=== PATIENT | female | born 1995 | race Caucasian/White ===

== ENCOUNTER 2016-11-07 16:11 | Emergency (ER) | payer OTHER ==
[~2016-11-07] VITALS: Ht 170.2 cm; Wt 75.0 kg
[~2016-11-07 16:11] MED LIST: DOCU-41 PO; HYDR-4003 PO; HYDROcodone-APAP 5-325 PO; IBUP800T28 PO; TUCPAD TOPICAL
[2016-11-07 16:14] VITALS: BP 130/89; PULSE 72; RESP 15; O2SAT 100
--- NOTE | 2016-11-07 17:50 | ED.REPORT ---
HPI-General Illness Date of Service Nov 07, 2016 ED Provider: Darrius Butler MD Patient is a healthy 21 year old female who presents to the ED complaining of left leg numbness that began 4 days ago. Patient reports that the numbness radiates up to her back. She describes the pain in her back as a stinging sensation. Patient is currently expressing concern because the sensation has persisted. She denies any difficulty ambulating, bowel/bladder incontinence, significant changes in weight head injury or LOC. He denies any chance of due to Mirena. Patient denies any pertinent medical history or current medications. Nursing Notes Stated Complaint: LEFT SIDE NUMB Chief Complaint: Extremity Trauma Nursing Notes Reviewed: Yes Allergies: Coded Allergies: No Known Allergies (Verified Allergy, Unknown, 11/07/16) Scheduled Docusate Sodium (Colace) 100 Mg Capsule 100 MG PO BID Prednisone (PredniSONE) 20 Mg Tablet 20 MG PO DAILY Scheduled PRN ([HYDROcodone-APAP 5-325]) 1 TABLET TABLET 1-2 TABLET PO Q4H PRN PRN For Pain Cyclobenzaprine (Cyclobenzaprine) 5 Mg Tablet 5 MG PO HS PRN PRN Spasm Hydrocodone-Acetaminophen 5-325 mg (Hydrocodone-Acetaminophen 5-325 mg) 1 Each Tablet 1 TABLET PO Q4H PRN PRN For Pain Ibuprofen (Ibuprofen) 800 Mg Tablet 800 MG PO Q6H PRN PRN For Pain Witch Aixa/Glycerin (A.e.r Pads) 12 Pad/Pkg Pad 1 PAD TOPICAL PRN PRN PRN for perineal pain General Time Seen by MD: 17:47 Chief Complaint Other (Numbness ) Hx Obtained From: Patient Arrived By: Walk-in Sudden in Onset?: No Onset Occurred: 4 days ago Symptom Duration: 4 days Location: : Back: Leg left Quality: Same as prior (stinging) Radiation: : Back Severity: Current: Moderate Severity: Maximum: Moderate Associated with: Reports: Numb extremities, Denies: Headache, Loss of consciousness, Weak extremity, Weakness Pertinent Negative: Pt denies other symptoms Recent Healthcare: No recent doctor visit, No recent hospitalization Past Medical History Past Medical History Healthy Past Surgical History None reported. Smoking History Unknown if Ever Smoker Social History Other Social History: Good social support, Local resident Ambulatory Status Independent Review of Systems Full Review of Systems Female: Denies: Incontinence Musculoskeletal: Reports: Back pain Neurologic: Reports: Numbness (left leg ), Denies: Change LOC, Focal weakness, Headache, Weakness Complete sys rev & neg: except as marked. Physical Exam Vital Signs Vital Signs Date Time Temp Pulse Resp B/P Pulse Ox O2 Delivery O2 Flow Rate FiO2 11/07/16 19:09 36.8 72 16 128/88 100 Room Air 11/07/16 16:14 36.8 72 15 130/89 100 Room Air Initial VS: Reviewed Neck: Supple, Non-tender, Full range of motion Skin: Warm, Dry, No cyanosis Psychiatric: Mood/affect normal, Behavior normal, Normal thought content General/Constitutional: Awake, Alert, No acute distress, Well appearing, Well developed Head / Eyes: Atraumatic, Normocephalic, PERRL Respiratory / Chest: Atraumatic, Breath sounds NL, Breath sounds = bilat, No respiratory distress Cardiovascular: Heart rate NL, Regular rhythm, Heart sounds NL, No gallop, No murmurs, No rubs Back: Atraumatic, No midline vertebral tend, No CVA tenderness Flank / Spine / Paraspinal: Positive: Lumbar paraspinal tend... Lower Extremity / Pelvis / MS: Atraumatic, Inspection NL, Neurologic intact, Vascular intact NEURO: Normal patellar reflex 5/5 strength in the bilateral extremities. Subjective sensory change but able to feel palpation Interpretation & Diagnostics Lab Results Interpretation Test 11/07/16 18:52 Hold Urine Received (Received) Point of Care Testing: Preg test neg - urine Re-Eval/Medical Decision Med Decision/Clinical Course Patient is a healthy 21 year old female who presents to the ED complaining of left leg numbness that began 4 days ago. Patient reports that the numbness radiates up to her back. She describes the pain in her back as a stinging sensation. Patient is currently expressing concern because the sensation has persisted. She denies any difficulty ambulating, bowel/bladder incontinence, significant changes in weight head injury or LOC. He denies any chance of due to Mirena. Patient denies any pertinent medical history or current medications. Here in the emergency department the patient is afebrile stable vital signs and examination as above. Urine test is negative. Patient has full strength in the affected extremity and sensation is intact both subjectively "feels different". 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 Discussed management options with the patient and given that this is not going on for 4 days she would like "some medication to help her out". I feel that she may benefit from a short course of oral prednisone for anti-inflammatory effect. I will prescribe her 5 days of prednisone 20 mg. She requested medication to help with the pain and was given a limited supply of Flexeril. She is advised not to drive or drink alcohol while taking this medication. At this time, I see no indication of central cord pathology or cauda equina syndrome. I do not feel that any imaging studies are indicated. Prior to discharge follow-up and return precautions were reviewed in detail with the patient who verbalized understanding and agreement with the plan. The patient was discharged in stable condition. Time of Eval: 18:07 Patient Status: Condition improved Re-Evaluation/Progress Note: Patient is rechecked. She is informed of her results and diagnosis. All questions about the intended treatment plan are addressed. She understands and agrees with the plan to discharge with follow up. Counseled Regarding: Diagnosis, Need for follow-up, When/why to return to ED Discharge & Departure Primary Impression: Inflammation of nerve of lower extremity Additional Impressions: Leg numbness Low back pain Chronicity: acute Back pain laterality: unspecified Sciatica presence: unspecified whether sciatica present Qualified Code: M54.5 - Low back pain Disposition: Home Discharge Condition All VS Reviewed: Yes Condition: Improved Patient Instructions: Sciatica (ED) Additional Instructions: Thank you for seeking care at emergency room. It is difficult for us to make definitive diagnoses in the ED but we believe that your symptoms are due to a pinched nerve. Our primary goal today in the ED was to evaluate you for any life-threatening conditions. Your evaluation was reassuring. Take prednisone as directed for 5 days and attempt to stretch the area. Use ice and heat intermittently. You should follow-up with your primary doctor in the next week. You should return to the ED immediately if you develop weakness, lightheadedness, incontinence or any other concerning signs or symptoms. Thank you for letting us partake in your care today. Referrals: Cherelle Reyez (PCP) Scribe Attestation Portions of this note were transcribed by Roman Ruiz. I, Dr. Butler personally performed the history, physical exam and medical decision-making; I reviewed and confirmed the accuracy of the information in the transcribed note. Signed by: Parag Nj, 11/07/16 [id number]. copies to: Cherelle Reyez Beck O MD Nov 07, 2016 17:50 ROMAN RUIZ Nov 07, 2016 18:07
[2016-11-07] MEDS ORDERED: PRE20 PO (18:51)
[2016-11-07 19:09] VITALS: BP 128/88; PULSE 72; RESP 16; O2SAT 100
[2016-11-07] MEDS ORDERED: CYCL5TAB PO (19:13)
== END 2016-11-07 19:09 | disposition home or self-care (01) ==
LOC: SED 16:11
DX: R20.0 Anesthesia of skin (principal); M79.2 Neuralgia and neuritis, unspecified; M54.5 Low back pain